=== PATIENT | male | born 1995 | race Caucasian/White ===

== ENCOUNTER 2018-06-30 06:38 | Emergency (ER) | payer OTHER ==
[2018-06-30] MEDS ORDERED: Zofran 4 MG/2 ML VIAL IV ONE (07:26)
[2018-06-30] MEDS ORDERED: Sodium Chloride 0.9% 1000 ML 1,000 ML IV STA ×2 (07:26→08:19)
[2018-06-30] MEDS ORDERED: Sodium Chloride 0.9% 1000 ML 1,000 ML ONE ×2 (07:38→08:22)
[2018-06-30] MEDS ORDERED: Zofran 4 MG/2 ML VIAL ONE (07:38)
[2018-06-30] MEDS ORDERED: MOTRIN 600 MG PO ONE (07:40)
--- NOTE | 2018-06-30 07:40 | ERPHSYRPT ---
- History of Present Illness Time Seen by Provider: 06/30/18 07:00 Patient Subjective Stated Complaint: pt is alert and oriented. pt is ambulatory with a steady gait. pt states he has had body aches, fever, n/v, cough, since 2am 06/28/18. pt estimates he has vomited over 10 times in the last 24 hours. pt denies diarrhea, pt denies coughing up sputum. Triage Nursing Assessment: see above Physician History: PATIENT COMPLAINS OF ONSET OF FEVER GENERALIZED BODY ACHES AND NAUSEA AND VOMITING OVER THE PAST 2 DAYS ASSOCIATED WITH SORE THROAT AND A PRODUCTIVE COUGH. PATIENT STATES HE'S BE 6-7 TIMES DAILY FOR THE PAST 2 DAYS. DENIES CHEST PAIN, ABDOMINAL PAIN, SHORTNESS OF BREATH OR DIARRHEA. Timing/Duration: day(s) Cough Quality/Degree: productive cough Possible Cause: no prior episodes Modifying Factors: Improves With: coughing Associated Symptoms: fever, chills, cough, sore throat International travel in last 2 weeks: No Allergies/Adverse Reactions: naproxen [From Naprosyn] Allergy (Mild, Verified 08/04/13 23:35) acetaminophen [From Lortab] Allergy (Verified 06/30/18 06:52) hydrocodone [From Lortab] Allergy (Verified 06/30/18 06:52) morphine Allergy (Verified 06/30/18 06:52) oxycodone [From OxyContin] Allergy (Verified 06/30/18 06:52) Hx Tetanus, Diphtheria Vaccination/Date Given: Yes (2011) Hx Influenza Vaccination/Date Given: No Hx Pneumococcal Vaccination/Date Given: No - Review of Systems Constitutional: Fever, Chills Eyes: No Symptoms Ears, Nose, & Throat: No Symptoms Respiratory: Cough, No Dyspnea Cardiac: No Symptoms, No Chest Pain, No Edema, No Syncope Abdominal/Gastrointestinal: Nausea, Vomiting, No Abdominal Pain, No Diarrhea Genitourinary Symptoms: No Symptoms, No Dysuria Musculoskeletal: Arthralgias, No Back Pain, No Neck Pain Skin: No Rash Neurological: No Dizziness, No Focal Weakness, No Sensory Changes Psychological: No Symptoms Endocrine: No Symptoms All Other Systems: Reviewed and Negative - Past Medical History Pertinent Past Medical History: No Neurological History: No Pertinent History ENT History: No Pertinent History Cardiac History: No Pertinent History Respiratory History: Asthma Endocrine Medical History: No Pertinent History Musculoskeletal History: Fractures GI Medical History: No Pertinent History History: Other Psycho-Social History: No Pertinent History Male Reproductive Disorders: No Pertinent History Other Medical History: SPINA BIFIDA - Past Surgical History Past Surgical History: Yes Musculoskeletal: Orthopedic Surgery, Other Other Surgical History: L5 Surgery, Right index finger - Social History Smoking Status: Never smoker Exposure to second hand smoke: No Drug Use: none Patient Lives Alone: No - Nursing Vital Signs Nursing Vital Signs: Initial Vital Signs Temperature 100.8 F 06/30/18 06:40 Pulse Rate 78 06/30/18 06:40 Respiratory Rate 18 06/30/18 06:40 Blood Pressure 108/64 06/30/18 06:40 O2 Sat by Pulse Oximetry 100 06/30/18 06:40 Pain Scale Pain Intensity 0 - Physical Exam General Appearance: no apparent distress, alert Eye Exam: PERRL/EOMI, eyes nml inspection Ears, Nose, Throat Exam: normal ENT inspection, TMs normal, pharynx normal, moist mucous membranes Neck Exam: normal inspection, non-tender, supple, full range of motion Respiratory Exam: normal breath sounds, lungs clear, No respiratory distress Cardiovascular Exam: regular rate/rhythm, normal heart sounds Gastrointestinal/Abdomen Exam: soft, normal bowel sounds (NONTENDER), No tenderness Back Exam: normal inspection, No CVA tenderness, No vertebral tenderness Extremity Exam: normal inspection, normal range of motion Neurologic Exam: alert, oriented x 3, cooperative, normal mood/affect, sensation nml, No motor deficits Skin Exam: normal color, warm, dry, No rash Lymphatic Exam: No adenopathy SpO2 Interpretation: normal SpO2: 100 Oxygen Delivery: Room Air - Radiology Exams Chest X-ray Interpretation: Interpreted by me, Negative Ordered Tests: Active Orders 24 hr Category Date Time Status IV Insertion STAT Care 06/30/18 07:26 Active CHEST 1 VIEW (PORTABLE) Stat Exams 06/30/18 07:28 Taken BMP Stat Lab 06/30/18 07:38 Completed CBC W DIFF Stat Lab 06/30/18 07:38 Completed Manual Differential NC Stat Lab 06/30/18 07:38 Completed Medication Summary Discontinued Medications Generic Name Dose Route Start Last Admin Trade Name Freq PRN Reason Stop Dose Admin Sodium Chloride 1,000 mls @ 999 mls/hr 06/30/18 07:26 06/30/18 07:42 Sodium Chloride 0.9% 1000 Ml IV 06/30/18 08:26 999 mls/hr .Q1H1M STA Administration Sodium Chloride Confirm 06/30/18 07:38 Sodium Chloride 0.9% 1000 Ml Administered 06/30/18 07:39 Dose 1,000 mls @ ud .ROUTE .STK-MED ONE Ceftriaxone Sodium/Dextrose 1 g in 50 mls @ 100 mls/hr 06/30/18 08:18 08:25 Rocephin 1 Gm-D5w 50 Ml Bag IV 06/30/18 08:47 100 ml/hr STAT STA 100 mls/hr Administration Sodium Chloride 1,000 mls @ 999 mls/hr 06/30/18 08:19 06/30/18 08:39 Sodium Chloride 0.9% 1000 Ml IV 06/30/18 09:19 999 mls/hr .Q1H1M STA Administration Sodium Chloride Confirm 06/30/18 08:22 Sodium Chloride 0.9% 1000 Ml Administered 06/30/18 08:23 Dose 1,000 mls @ ud .ROUTE .STK-MED ONE Ceftriaxone Sodium/Dextrose Confirm 06/30/18 08:22 Rocephin 1 Gm-D5w 50 Ml Bag Administered 06/30/18 08:23 Dose 1 g in 50 mls @ ud IV .STK-MED ONE Ibuprofen 600 mg 06/30/18 07:40 06/30/18 07:45 Motrin 600 Mg PO 06/30/18 07:41 600 mg STAT ONE Administration Ibuprofen Confirm 06/30/18 07:45 Motrin 600 Mg Administered 06/30/18 07:46 Dose 600 mg .ROUTE .STK-MED ONE Ondansetron HCl 4 mg 06/30/18 07:26 06/30/18 07:42 Zofran 4 Mg/2 Ml Vial IV 06/30/18 07:27 4 mg STAT ONE Administration Ondansetron HCl Confirm 06/30/18 07:38 Zofran 4 Mg/2 Ml Vial Administered 06/30/18 07:39 Dose 4 mg .ROUTE .STK-MED ONE Lab/Rad Data: Laboratory Result Diagrams 06/30/18 07:38 06/30/18 07:38 Laboratory Results 06/30/18 06/30/18 06/30/18 Range/Units 07:38 07:38 07:25 WBC 7.0 (4.0-10.5) K/mm3 RBC 4.84 (4.1-5.6) M/mm3 Hgb 14.8 (12.5-18.0) gm/dl Hct 44.1 (42-50) % MCV 91.1 (78-100) fl MCH 30.6 (26-32) pg MCHC 33.6 (32-36) g/dl RDW 12.2 (11.5-14.0) % Plt Count 188 (150-450) K/mm3 MPV 10.4 H (6-9.5) fl Segmented Neutrophils 88 H (36.-66.) % Lymphocytes (Manual) 12 L (24-44) % Platelet Estimate NORMAL (NORMAL) RBC Morphology NORMAL Sodium 138 (137-145) mmol/L Potassium 4.1 (3.5-5.1) mmol/L Chloride 101 (98-107) mmol/L Carbon Dioxide 28 (22-30) mmol/L Anion Gap 13.3 (5-15) MEQ/L BUN 14 (9-20) mg/dL Creatinine 1.06 (0.66-1.25) mg/dL Estimated GFR > 60.0 ML/MIN Glucose 107 H (74-106) mg/dL Calcium 9.4 (8.4-10.2) mg/dL Influenza Type A Ag POSITIVE (NEGATIVE) Influenza Type B Ag NEGATIVE (NEGATIVE) RSV (PCR) NEGATIVE (Negative) Group A Strep Antibody NEGATIVE (NEGATIVE) - Progress Progress: improved Progress Note: 06/30/18 07:50 NORMAL SALINE 1 LITER/HOUR 2, ZOFRAN 4 MG, ROCEPHIN 1 G IVPB AND MOTRIN 600 MG ORAL Counseled pt/family regarding: lab results, diagnosis, need for follow-up, rad results - Departure Time of Disposition: 10:00 Departure Disposition: Home Clinical Impression: INFLUENZA A, ACUTE BRONCHITIS Condition: Stable Critical Care Time: No Referrals: BELA TIM [Primary Care Provider] - Additional Instructions: ALTERNATE MOTRIN EVERY OTHER 4 HOURS WITH TYLENOL NEEDED FOR FEVER CHILLS OR BODY ACHES. ANTIBIOTIC CEFDINIR 300 MG TWICE DAILY FOR 10 DAYS AND TAMIFLU 75 MG TWICE DAILY FOR 5 DAYS FOR TREATMENT OF INFLUENZA. DRINK PLENTY OF FLUIDS. CONSULT YOUR PRIMARY CARE PROVIDER FOR FOLLOWUP IN 1 WEEK. ZOFRAN 4MG EVERY 4 HOURS FOR NAUSEA. Prescriptions: Ondansetron ODT 4 MG [Zofran Odt 4 mg] 4 mg PO Q6H PRN PRN #10 tab.rapdis PRN Reason: Nausea Cefdinir [Omnicef] 300 mg PO BID #20 capsule Oseltamivir 75 mg [Tamiflu 75MG Capsule] 75 mg PO BID #10 cap
[2018-06-30 07:45] LABS: Hematocrit 44.1 % (42-50); Hemoglobin 14.8 gm/dl (12.5-18.0); Mean Cell Volume 91.1 fl (78-100); Mean Corpuscular Hemoglobin 30.6 pg (26-32); Mean Corpuscular Hgb Concent. 33.6 g/dl (32-36); Mean Platelet Volume 10.4 fl (6-9.5); Platelet Count 188 K/mm3 (150-450); Red Blood Count 4.84 M/mm3 (4.1-5.6); Red Cell Distribution Width 12.2 % (11.5-14.0)
[2018-06-30] MEDS ORDERED: MOTRIN 600 MG ONE (07:45)
[2018-06-30 07:56] LABS: ANION GAP 13.3 MEQ/L (5-15); BLOOD UREA NITROGEN 14 mg/dL (9-20); CHLORIDE 101 mmol/L (98-107); Calcium 9.4 mg/dL (8.4-10.2); Carbon Dioxide 28 mmol/L (22-30); Creatinine 1 1.06 mg/dL (0.66-1.25); Glucose 107 mg/dL (74-106); Potassium 4.1 mmol/L (3.5-5.1); SODIUM 138 mmol/L (137-145)
[2018-06-30 08:14] LABS: INFLUENZA A POSITIVE (NEGATIVE); INFLUENZA B NEGATIVE (NEGATIVE); RESPIRATORY SYNCTIAL VIRUS NEGATIVE (Negative)
[2018-06-30] MEDS ORDERED: ROCEPHIN 1 Gm-D5w 50 ml Bag** 1 G/50 ML IVPB IV STA (08:18)
[2018-06-30] MEDS ORDERED: ROCEPHIN 1 Gm-D5w 50 ml Bag** 1 G/50 ML IVPB IV ONE (08:22)
[2018-06-30 08:45] LABS: Lymphocytes 12 % (24-44); Neutrophils 88 % (36.-66.); Total Cells Counted 100
[2018-06-30 08:46] LABS: Platelet Estimate NORMAL (NORMAL)
[2018-06-30 10:05] VITALS: BP 99/67; PULSE 77; O2SAT 18
--- NOTE | 2018-06-30 15:41 | XRAY ---
Indication: Productive cough 3 days. Comparison: August 09, 2017. Portable chest again demonstrates normal heart, lungs, and bony thorax.
== END 2018-06-30 10:04 | disposition home or self-care (01) ==
LOC: ED 06:38
DX: J09.X2 Influenza due to identified novel influenza A virus with other respiratory manifestations (principal); J20.9 Acute bronchitis, unspecified
CPT/HCPCS: 36000; 36415; 71045; 80048; 85025; 87631; 87651; 96360; 96361; 96365; 96374; 99284; J0696; J2405; A9270-GY

== ENCOUNTER 2023-07-14 15:55 | Emergency (ER) | payer BC, OTHER ==
[2023-07-14 16:07] VITALS: TEMP 97.3
[2023-07-14 16:34] LABS: Absolute Neutrophil Ct (ANC) 3.94 x10^3/uL (1.4-6.9); BASOPHIL % 1.4 % (0.0-0.4); Basophil (Absolute #) 0.08 x10^3/uL (0-0.4); Eosinophil % 1.3 % (0.00-5.0); Eosinophil (Absolute #) 0.07 x10^3/uL (0-0.5); Hematocrit 44.9 % (42-50); Hemoglobin 15.5 g/dL (12.5-18.0); IMMATURE GRAN # 0.03 x10^3u/L (0.00-0.03); IMMATURE GRAN % 0.5 % (0.00-0.4); Lymphocyte (Absolute #) 1.07 x10^3/uL (1.0-4.6); Lymphocytes % 19.2 % (24.0-44.0); Mean Cell Volume 88.7 fL (78-100); Mean Corpuscular Hemoglobin 30.6 pg (26-32); Mean Corpuscular Hgb Concent. 34.5 g/dL (32-36); Mean Platelet Volume 10.1 fL (7.5-11.0); Monocyte (Absolute #) 0.39 x10^3/uL (0.0-1.3); Neutrophil % 70.6 % (36.0-66.0); Platelet Count 265 x10^3/uL (150-450); Red Blood Count 5.06 x10^6/uL (4.1-5.6); Red Cell Distribution Width 11.8 % (11.5-14.0); White Blood Count 5.6 x10^3/uL (4.0-10.5)
--- NOTE | 2023-07-14 16:51 | ERPHSYRPT ---
- History of Present Illness Time Seen by Provider: 07/14/23 16:05 Source: patient, EMS Exam Limitations: no limitations Patient Subjective Stated Complaint: PT HERE FOR NOT FEELING WELL TODAY, STATES WAS FEELING LIKE HEART RACING TODAY AT WORK AND THEN DEVELOPED PAIN UNDER LEFT ARM. STATES A PRESSURE. NO FEVER,COUGH, WAS TESTED LAST WEEK FR=OR COVID AND NEGATIVE, HAD RECENT TRAVEL Triage Nursing Assessment: PT ALERT, ARRIVED PER AMBULANCE, SKIN W.D.P,NO COUGH, NO EDEMA Physician History: This is a 28-year-old white male patient was brought to the emergency department by the ambulance/assistant pressman service because of patient not feeling well and found to have elevated blood pressure and elevated heart rate. Patient takes no medications chronically. He does have a history of asthma. Patient was not feeling well all day and he felt as though he was having palpitation and his heart was racing. He then began having pain under his left axilla and left lateral chest wall. There has been recent travel out of state. Patient stated that he was tested for COVID last week and was negative. Patient also states th at the family members have had flulike symptoms. Patient denies cough. He denies abdominal pain. He denies nausea vomiting and diarrhea symptoms. Timing/Duration: today Severity: mild (To moderate) Modifying Factors: Improves With: nothing Associated Symptoms: chest pain, other (Palpitations) Allergies/Adverse Reactions: naproxen [From Naprosyn] Allergy (Mild, Verified 07/14/23 15:59) acetaminophen [From Lortab] Allergy (Verified 07/14/23 15:59) hydrocodone [From Lortab] Allergy (Verified 07/14/23 15:59) morphine Allergy (Verified 07/14/23 15:59) oxycodone [From OxyContin] Allergy (Verified 07/14/23 15:59) Home Medications: No Reportable Medications [No Reported Medications] 07/14/23 [History] Hx Tetanus, Diphtheria Vaccination/Date Given: No Hx Influenza Vaccination/Date Given: No Hx Pneumococcal Vaccination/Date Given: No Immunizations Up to Date: Yes Travel Risk - International Travel Have you traveled outside of the country in past 3 weeks: No - Coronavirus Screening Are you exhibiting any of the following symptoms?: No Close contact with a COVID-19 positive Pt in past 14-21 Days: No - Vaccine Status Have you recieved a Covid-19 vaccination: No - Review of Systems Constitutional: Weakness Eyes: No Symptoms Ears, Nose, & Throat: No Symptoms Respiratory: No Symptoms Cardiac: Chest Pain, Palpitations Abdominal/Gastrointestinal: No Symptoms Genitourinary Symptoms: No Symptoms Musculoskeletal: No Symptoms Skin: No Symptoms Neurological: No Symptoms Psychological: No Symptoms Endocrine: No Symptoms Hematologic/Lymphatic: No Symptoms Immunological/Allergic: No Symptoms All Other Systems: Reviewed and Negative - Past Medical History Pertinent Past Medical History: No Neurological History: No Pertinent History ENT History: No Pertinent History Cardiac History: No Pertinent History Respiratory History: Asthma Endocrine Medical History: No Pertinent History Musculoskeletal History: Fractures GI Medical History: No Pertinent History History: Other Psycho-Social History: No Pertinent History Male Reproductive Disorders: No Pertinent History Other Medical History: SPINA BIFIDA - Past Surgical History Past Surgical History: Yes Musculoskeletal: Orthopedic Surgery, Other Male Surgical History: Vasectomy Other Surgical History: L5 Surgery, Right index finger - Social History Smoking Status: Never smoker Exposure to second hand smoke: Yes Drug Use: none Patient Lives Alone: No - Nursing Vital Signs Nursing Vital Signs: Initial Vital Signs Pulse Rate 83 07/14/23 16:00 Respiratory Rate 19 07/14/23 16:00 Blood Pressure 151/97 07/14/23 16:00 O2 Sat by Pulse Oximetry 96 07/14/23 16:00 Pain Scale Pain Intensity 5 - Physical Exam General Appearance: no apparent distress, alert, anxiety Eye Exam: PERRL/EOMI, eyes nml inspection Ears, Nose, Throat Exam: normal ENT inspection, moist mucous membranes Neck Exam: normal inspection, non-tender, supple, full range of motion Respiratory Exam: normal breath sounds, lungs clear, airway intact, No chest tenderness, No respiratory distress Cardiovascular Exam: regular rate/rhythm, normal heart sounds, normal peripheral pulses Gastrointestinal/Abdomen Exam: soft, normal bowel sounds, No tenderness Rectal Exam: not done Back Exam: normal inspection, normal range of motion, No CVA tenderness, No vertebral tenderness Extremity Exam: normal inspection, normal range of motion, pelvis stable Neurologic Exam: alert, oriented x 3, cooperative, 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, normal mood/affect, nml cerebellar function, nml station & gait Skin Exam: normal color, warm, dry Lymphatic Exam: No adenopathy SpO2 Interpretation: normal SpO2: 95 O2 Delivery: Room Air - Course Nursing assessment & vital signs reviewed: Yes Ordered Tests: Active Orders 24 hr Category Date Time Status Lease Attendant STAT Care 07/14/23 16:14 Active EKG-ER Only STAT Care 07/14/23 16:13 Active IV Insertion STAT Care 07/14/23 16:13 Active Pulse Oximetry (ED) STAT Care 07/14/23 16:13 Active CBC W DIFF Stat Lab 07/14/23 16:25 Completed CMP Stat Lab 07/14/23 16:25 Completed D-DIMER QUANTITATIVE Stat Lab 07/14/23 16:25 Completed MONO SCREEN Stat Lab 07/14/23 16:25 Completed NT PRO BNPII Stat Lab 07/14/23 16:25 Completed TROPONIN Q4H Lab 07/14/23 16:25 Completed TROPONIN Q4H Lab 07/14/23 20:15 Ordered TROPONIN Q4H Lab 07/15/23 00:15 Ordered Lab/Rad Data: Laboratory Result Diagrams 07/14/23 16:25 07/14/23 16:25 Laboratory Results 07/14/23 07/14/23 07/14/23 Range/Units 16:30 16:25 16:25 WBC (4.0-10.5) x10^3/uL RBC (4.1-5.6) x10^6/uL Hgb (12.5-18.0) g/dL Hct (42-50) % MCV (78-100) fL MCH (26-32) pg MCHC (32-36) g/dL RDW (11.5-14.0) % Plt Count (150-450) x10^3/uL MPV (7.5-11.0) fL Gran % (36.0-66.0) % Immature Gran % (Auto) (0.00-0.4) % Nucleat RBC Rel Count (0.00-0.1) % Eos # (Auto) (0-0.5) x10^3/uL Immature Gran # (Auto) (0.00-0.03) x10^3u/L Absolute Lymphs (auto) (1.0-4.6) x10^3/uL Absolute Monos (auto) (0.0-1.3) x10^3/uL Absolute Nucleated RBC (0.00-0.01) x10^3u/L Lymphocytes % (24.0-44.0) % Monocytes % (0.0-12.0) % Eosinophils % (0.00-5.0) % Basophils % (0.0-0.4) % Absolute Granulocytes (1.4-6.9) x10^3/uL Basophils # (0-0.4) x10^3/uL D-Dimer (0.0-0.50) mg/L Sodium (137-145) mmol/L Potassium (3.5-5.1) mmol/L Chloride (98-107) mmol/L Carbon Dioxide (22-30) mmol/L Anion Gap (5-15) MEQ/L BUN (9-20) mg/dL Creatinine (0.66-1.25) mg/dL Estimated GFR ML/MIN Glucose (74-106) mg/dL Calcium (8.4-10.2) mg/dL Total Bilirubin (0.2-1.3) mg/dL AST (17-59) U/L ALT (0-50) U/L Alkaline Phosphatase (38-126) U/L Troponin I < 0.012 (0.000-0.034) ng/mL NT-Pro-B Natriuret Pep (<300) pg/mL Serum Total Protein (6.3-8.2) g/dL Albumin (3.5-5.0) g/dL Monoscreen NEGATIVE (NEGATIVE) Influenza Type A Ag NEGATIVE (NEGATIVE) Influenza Type B Ag NEGATIVE (NEGATIVE) RSV (PCR) NEGATIVE (NEGATIVE) SARS-CoV-2 (PCR) NEGATIVE (NEGATIVE) 07/14/23 07/14/23 07/14/23 Range/Units 16:25 16:25 16:25 WBC 5.6 (4.0-10.5) x10^3/uL RBC 5.06 (4.1-5.6) x10^6/uL Hgb 15.5 (12.5-18.0) g/dL Hct 44.9 (42-50) % MCV 88.7 (78-100) fL MCH 30.6 (26-32) pg MCHC 34.5 (32-36) g/dL RDW 11.8 (11.5-14.0) % Plt Count 265 (150-450) x10^3/uL MPV 10.1 (7.5-11.0) fL Gran % 70.6 H (36.0-66.0) % Immature Gran % (Auto) 0.5 H (0.00-0.4) % Nucleat RBC Rel Count 0.0 (0.00-0.1) % Eos # (Auto) 0.07 (0-0.5) x10^3/uL Immature Gran # (Auto) 0.03 (0.00-0.03) x10^3u/L Absolute Lymphs (auto) 1.07 (1.0-4.6) x10^3/uL Absolute Monos (auto) 0.39 (0.0-1.3) x10^3/uL Absolute Nucleated RBC 0.00 (0.00-0.01) x10^3u/L Lymphocytes % 19.2 L (24.0-44.0) % Monocytes % 7.0 (0.0-12.0) % Eosinophils % 1.3 (0.00-5.0) % Basophils % 1.4 (0.0-0.4) % Absolute Granulocytes 3.94 (1.4-6.9) x10^3/uL Basophils # 0.08 (0-0.4) x10^3/uL D-Dimer 0.28 (0.0-0.50) mg/L Sodium 139 (137-145) mmol/L Potassium 4.0 (3.5-5.1) mmol/L Chloride 103 (98-107) mmol/L Carbon Dioxide 26 (22-30) mmol/L Anion Gap 13.8 (5-15) MEQ/L BUN 14 (9-20) mg/dL Creatinine 1.01 (0.66-1.25) mg/dL Estimated GFR 102.6 ML/MIN Glucose 103 (74-106) mg/dL Calcium 9.6 (8.4-10.2) mg/dL Total Bilirubin 0.80 (0.2-1.3) mg/dL AST 31 (17-59) U/L ALT 28 (0-50) U/L Alkaline Phosphatase 76 (38-126) U/L Troponin I (0.000-0.034) ng/mL NT-Pro-B Natriuret Pep < 20.0 (<300) pg/mL Serum Total Protein 8.1 (6.3-8.2) g/dL Albumin 4.8 (3.5-5.0) g/dL Monoscreen (NEGATIVE) Influenza Type A Ag (NEGATIVE) Influenza Type B Ag (NEGATIVE) RSV (PCR) (NEGATIVE) SARS-CoV-2 (PCR) (NEGATIVE) - Progress Progress Note: 07/14/23 16:54 This patient's medical issue is 1 of moderate complexity. Level complex in the workup performed is based on review of the patient's past medical history, review of the patient's medication list, review of the patient's drug allergy list, history present illness and physical findings on examination. This patient's medical history includes placement of intravenous line, twelve-lead EKG, D-dimer, BNP, troponin level, CBC, CMP, urinalysis and viral swabs. 07/14/23 17:42 I reviewed and interpreted this patient's laboratory data results. There is no evidence of any acute or emergent medical issue at this time. Counseled pt/family regarding: lab results, diagnosis, need for follow-up, rad results Medical Desision Making - Diagnostic Testing Diagnostic test were ordered, analyzed, and reviewed by me: Yes - Risk of complications Minimal Risk: Minimal risk of morbidity - Departure Departure Disposition: Home Clinical Impression: Malaise and fatigue Condition: Stable Critical Care Time: No Referrals: BELA TIM [Primary Care Provider] - Follow up/PCP as directed Additional Instructions: Drink plenty of fluids. Advance your diet slowly once tolerating clear liquids well.
[2023-07-14 16:56] LABS: ALBUMIN 4.8 g/dL (3.5-5.0); ALKALINE PHOSPHATASE 76 U/L (38-126); ANION GAP 13.8 MEQ/L (5-15); BLOOD UREA NITROGEN 14 mg/dL (9-20); CHLORIDE 103 mmol/L (98-107); Calcium 9.6 mg/dL (8.4-10.2); Carbon Dioxide 26 mmol/L (22-30); Creatinine 1 1.01 mg/dL (0.66-1.25); EST GLOMERULAR FILTRATION RATE 102.6 ML/MIN; Glucose 103 mg/dL (74-106); NT PRO BNPII < 20.0 pg/mL (<300); SGOT/AST 31 U/L (17-59); SGPT/ALT 28 U/L (0-50); SODIUM 139 mmol/L (137-145); Total Protein 8.1 g/dL (6.3-8.2)
[2023-07-14 17:14] LABS: INFLUENZA A NEGATIVE (NEGATIVE); INFLUENZA B NEGATIVE (NEGATIVE); RESPIRATORY SYNCTIAL VIRUS NEGATIVE (NEGATIVE); SARS-CoV-2 Xpert Express NEGATIVE (NEGATIVE)
[2023-07-14 17:58] VITALS: BP 133/87; PULSE 69; RESP 18; O2SAT 98
== END 2023-07-14 17:58 | disposition home or self-care (01) ==
LOC: ED 15:55
DX: R53.83 Other fatigue (principal); R53.81 Other malaise; R00.2 Palpitations; R07.9 Chest pain, unspecified; Z28.310 Unvaccinated for COVID-19
CPT/HCPCS: 0241U; 36000; 36415; 80053; 83880; 84484; 85025; 85379; 86308; 93005; 93041; 94760; 99283

== ENCOUNTER 2024-07-25 08:24 | Emergency (ER) | payer OTHER ==
[2024-07-25 08:31] VITALS: TEMP 97
[2024-07-25 09:00] LABS: Absolute Neutrophil Ct (ANC) 4.03 x10^3/uL (1.78-5.38); BASOPHIL % 1.1 % (0.2-1.2); Basophil (Absolute #) 0.08 x10^3/uL (0.01-0.08); Eosinophil % 1.5 % (0.8-7.0); Eosinophil (Absolute #) 0.11 x10^3/uL (0.04-0.54); Hematocrit 45.1 % (40.1-51.0); Hemoglobin 15.6 g/dL (13.7-17.5); IMMATURE GRAN # 0.02 x10^3u/L (0.001-0.031); IMMATURE GRAN % 0.3 % (0.001-0.429); Lymphocyte (Absolute #) 2.71 x10^3/uL (1.32-3.57); Lymphocytes % 35.8 % (21.8-53.1); Mean Cell Volume 87.9 fL (79.0-92.2); Mean Corpuscular Hemoglobin 30.4 pg (25.7-32.2); Mean Corpuscular Hgb Concent. 34.6 g/dL (32.3-36.5); Mean Platelet Volume 10.5 fL (9.4-12.4); Monocyte (Absolute #) 0.63 x10^3/uL (0.30-0.82); Monocytes % 8.3 % (5.3-12.2); Platelet Count 249 x10^3/uL (163-337); Red Blood Count 5.13 x10^6/uL (4.63-6.08); Red Cell Distribution Width 11.6 % (11.6-14.4); White Blood Count 7.6 x10^3/uL (4.23-9.07)
[2024-07-25] MEDS ORDERED: BABY ASPIRIN 81 MG CHEW ONE (09:01)
[2024-07-25] MEDS: BABY ASPIRIN 81 MG CHEW PO ONE (09:02)
[2024-07-25 09:14] LABS: ALBUMIN 4.8 g/dL (3.5-5.0); ALKALINE PHOSPHATASE 66 U/L (38-126); ANION GAP 9.4 MEQ/L (5-15); BLOOD UREA NITROGEN 15 mg/dL (9-20); CHLORIDE 105 mmol/L (98-107); CK-Creatinine Phosphokinase 88 U/L (55-170); Calcium 9.9 mg/dL (8.4-10.2); Carbon Dioxide 29 mmol/L (22-30); Creatinine 1 1.11 mg/dL (0.66-1.25); EST GLOMERULAR FILTRATION RATE 91.1 ML/MIN; Glucose 112 mg/dL (74-106); NT PRO BNPII < 20.0 pg/mL (<300); Potassium 3.9 mmol/L (3.5-5.1); SGOT/AST 30 U/L (17-59); SGPT/ALT 21 U/L (0-50); SODIUM 140 mmol/L (135-145); Total Protein 7.6 g/dL (6.3-8.2)
--- NOTE | 2024-07-25 09:39 | XRAY ---
Indication: Cough. Comparison: April 08, 2024 Portable chest again demonstrates normal heart, lungs, and bony thorax.
[2024-07-25 10:15] LABS: Amphetamine,Urine NEGATIVE (NEGATIVE); Barbiturate,Urine NEGATIVE (NEGATIVE); Benzodiazepine,Urine NEGATIVE (NEGATIVE); Cocaine,Urine NEGATIVE (NEGATIVE); Methadone,Urine NEGATIVE (NEGATIVE); Opiate,Urine NEGATIVE (NEGATIVE); PCP,Urine NEGATIVE (NEGATIVE); THC,Urine NEGATIVE (NEGATIVE)
[2024-07-25 12:05] VITALS: O2SAT 97
--- NOTE | 2024-07-25 12:58 | ERPHSYRPT ---
- History of Present Illness Time Seen by Provider: 07/25/24 08:28 Historian: patient, family Exam Limitations: no limitations Patient Subjective Stated Complaint: pt here for cough and chest pain to center of chest, chills. Triage Nursing Assessment: pt alert,walked in, resp easy, skion w/d/p, chest clear, has occ coarse cough. pain with cough, no edema noted Physician History: 29-year-old with history of hypertension presented in the ER with complaints of sudden onset chest pain substernal dull aching to sharp, nonradiating, moderate to severe with no significant aggravating or relieving factors. 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 Patient reports having mild cough and it hurts to take a deep breath. No difficulty breathing otherwise. No fever or chills reported. No history of coronary artery disease. Nitro Today/Relief: no nitro taken today Aspirin Treatment Today: no aspirin today Allergies/Adverse Reactions: naproxen [From Naprosyn] Allergy (Mild, Verified 07/25/24 08:29) acetaminophen [From Lortab] Allergy (Verified 07/25/24 08:29) hydrocodone [From Lortab] Allergy (Verified 07/25/24 08:29) morphine Allergy (Verified 07/25/24 08:29) oxycodone [From OxyContin] Allergy (Verified 07/25/24 08:29) Home Medications: Atenolol 50 mg [Tenormin 50 mg] 50 mg PO DAILY 07/25/24 [History] Hx Tetanus, Diphtheria Vaccination/Date Given: No Hx Influenza Vaccination/Date Given: No Hx Pneumococcal Vaccination/Date Given: No Immunizations Up to Date: Yes Travel Risk - International Travel Have you traveled outside of the country in past 3 weeks: No - Emerging Infectious Disease Are you exhibiting symptoms associated with any current EIDs: Yes Symptoms: Cough: New Onset - Review of Systems Constitutional: No Symptoms Ears, Nose, & Throat: No Symptoms Respiratory: Cough Cardiac: Chest Pain Abdominal/Gastrointestinal: No Symptoms Genitourinary Symptoms: No Symptoms Musculoskeletal: No Symptoms Neurological: No Symptoms Endocrine: No Symptoms Hematologic/Lymphatic: No Symptoms - Past Medical History Pertinent Past Medical History: Yes Neurological History: No Pertinent History ENT History: No Pertinent History Cardiac History: Hypertension Respiratory History: Asthma Endocrine Medical History: No Pertinent History Musculoskeletal History: Fractures GI Medical History: No Pertinent History History: Other Psycho-Social History: No Pertinent History Male Reproductive Disorders: No Pertinent History Other Medical History: SPINA BIFIDA - Past Surgical History Past Surgical History: Yes Gastrointestinal: Cholecystectomy Musculoskeletal: Orthopedic Surgery, Other Male Surgical History: Vasectomy Other Surgical History: L5 Surgery, Right index finger - Social History Smoking Status: Never smoker Exposure to second hand smoke: Yes Drug Use: none Patient Lives Alone: No - Social Determinants of Health Will the patient participate in the screening: Declined to provide - Nursing Vital Signs Nursing Vital Signs: Initial Vital Signs Temperature 97.0 F 07/25/24 08:30 Pulse Rate 98 H 07/25/24 08:30 Respiratory Rate 14 07/25/24 08:30 Blood Pressure 175/101 07/25/24 08:30 O2 Sat by Pulse Oximetry 100 07/25/24 08:30 Pain Scale Pain Intensity 4 - Physical Exam General Appearance: no apparent distress Ears, Nose, Throat Exam: normal ENT inspection Neck Exam: normal inspection, supple, full range of motion Respiratory Exam: normal breath sounds, lungs clear Cardiovascular Exam: regular rate/rhythm, normal heart sounds Gastrointestinal/Abdomen Exam: soft, normal bowel sounds, No tenderness Back Exam: normal inspection, normal range of motion Extremity Exam: normal inspection, normal range of motion Neurologic Exam: alert, oriented x 3, cooperative, wildlife conservationist II-XII nml as tested, nml cerebellar function, nml station & gait, sensation nml, No normal mood/affect, No motor deficits Skin Exam: normal color SpO2 Interpretation: normal SpO2: 97 O2 Delivery: Room Air - Course EKG Interpreted by Me: RATE (96), Sinus Rhythm, NORMAL AXIS, NORMAL INTERVALS, Other (Nonspecific T wave changes) Ordered Tests: Active Orders 24 hr Category Date Time Status Director Personal STAT Care 07/25/24 08:53 Active EKG-ER Only STAT Care 07/25/24 08:52 Active IV Insertion STAT Care 07/25/24 08:52 Active Pulse Oximetry (ED) STAT Care 07/25/24 08:52 Active CHEST 1 VIEW (PORTABLE) Stat Exams 07/25/24 09:22 Completed CBC W DIFF Stat Lab 07/25/24 08:30 Completed CK-Creatinine Phosphokinase Stat Lab 07/25/24 08:30 Completed CMP Stat Lab 07/25/24 08:30 Completed D-DIMER QUANTITATIVE Stat Lab 07/25/24 08:30 Completed NT PRO BNPII Stat Lab 07/25/24 08:30 Completed TROPONIN Q4H Lab 07/25/24 08:30 Completed TROPONIN Q4H Lab 07/25/24 11:41 Completed TROPONIN Q4H Lab 07/25/24 17:00 Ordered Urine Triage Profile Stat Lab 07/25/24 09:52 Completed Medication Summary Discontinued Medications Generic Name Dose Route Start Last Admin Trade Name Leti PRN Reason Stop Dose Admin Aspirin 324 mg 07/25/24 08:52 07/25/24 09:02 Aspirin 81 Mg Tab.Chew PO 07/25/24 08:53 324 mg STAT ONE Administration Aspirin Confirm 07/25/24 09:01 Aspirin 81 Mg Tab.Chew Administered 07/25/24 09:02 Dose 324 mg .ROUTE .[employer] ONE Lab/Rad Data: Laboratory Result Diagrams 07/25/24 08:30 07/25/24 08:30 Laboratory Results 07/25/24 07/25/24 07/25/24 Range/Units 11:41 09:52 08:30 WBC (4.23-9.07) x10^3/uL RBC (4.63-6.08) x10^6/uL Hgb (13.7-17.5) g/dL Hct (40.1-51.0) % MCV (79.0-92.2) fL MCH (25.7-32.2) pg MCHC (32.3-36.5) g/dL RDW (11.6-14.4) % Plt Count (163-337) x10^3/uL MPV (9.4-12.4) fL Gran % (34.0-67.9) % Immature Gran % (Auto) (0.001-0.429) % Nucleat RBC Rel Count (0.00-0.2) % Eos # (Auto) (0.04-0.54) x10^3/uL Immature Gran # (Auto) (0.001-0.031) x10^3u/L Absolute Lymphs (auto) (1.32-3.57) x10^3/uL Absolute Monos (auto) (0.30-0.82) x10^3/uL Absolute Nucleated RBC (0.00-0.012) x10^3u/L Lymphocytes % (21.8-53.1) % Monocytes % (5.3-12.2) % Eosinophils % (0.8-7.0) % Basophils % (0.2-1.2) % Absolute Granulocytes (1.78-5.38) x10^3/uL Basophils # (0.01-0.08) x10^3/uL D-Dimer (0.0-0.50) mg/L Sodium (135-145) mmol/L Potassium (3.5-5.1) mmol/L Chloride (98-107) mmol/L Carbon Dioxide (22-30) mmol/L Anion Gap (5-15) MEQ/L BUN (9-20) mg/dL Creatinine (0.66-1.25) mg/dL Estimated GFR ML/MIN Glucose (74-106) mg/dL Calcium (8.4-10.2) mg/dL Total Bilirubin (0.2-1.3) mg/dL AST (17-59) U/L ALT (0-50) U/L Alkaline Phosphatase (38-126) U/L Creatine Kinase (55-170) U/L Troponin I < 0.012 < 0.012 (0.000-0.033) ng/mL NT-Pro-B Natriuret Pep (<300) pg/mL Serum Total Protein (6.3-8.2) g/dL Albumin (3.5-5.0) g/dL Urine Opiates Level NEGATIVE (NEGATIVE) Ur Methadone NEGATIVE (NEGATIVE) Urine Barbiturates NEGATIVE (NEGATIVE) Ur Phencyclidine (PCP) NEGATIVE (NEGATIVE) Urine Amphetamine NEGATIVE (NEGATIVE) U Benzodiazepine Level NEGATIVE (NEGATIVE) Urine Cocaine NEGATIVE (NEGATIVE) Urine Marijuana (THC) NEGATIVE (NEGATIVE) 07/25/24 07/25/24 07/25/24 Range/Units 08:30 08:30 08:30 WBC 7.6 (4.23-9.07) x10^3/uL RBC 5.13 (4.63-6.08) x10^6/uL Hgb 15.6 (13.7-17.5) g/dL Hct 45.1 (40.1-51.0) % MCV 87.9 (79.0-92.2) fL MCH 30.4 (25.7-32.2) pg MCHC 34.6 (32.3-36.5) g/dL RDW 11.6 (11.6-14.4) % Plt Count 249 (163-337) x10^3/uL MPV 10.5 (9.4-12.4) fL Gran % 53.0 (34.0-67.9) % Immature Gran % (Auto) 0.3 (0.001-0.429) % Nucleat RBC Rel Count 0.0 (0.00-0.2) % Eos # (Auto) 0.11 (0.04-0.54) x10^3/uL Immature Gran # (Auto) 0.02 (0.001-0.031) x10^3u/L Absolute Lymphs (auto) 2.71 (1.32-3.57) x10^3/uL Absolute Monos (auto) 0.63 (0.30-0.82) x10^3/uL Absolute Nucleated RBC 0.00 (0.00-0.012) x10^3u/L Lymphocytes % 35.8 (21.8-53.1) % Monocytes % 8.3 (5.3-12.2) % Eosinophils % 1.5 (0.8-7.0) % Basophils % 1.1 (0.2-1.2) % Absolute Granulocytes 4.03 (1.78-5.38) x10^3/uL Basophils # 0.08 (0.01-0.08) x10^3/uL D-Dimer 0.35 (0.0-0.50) mg/L Sodium 140 (135-145) mmol/L Potassium 3.9 (3.5-5.1) mmol/L Chloride 105 (98-107) mmol/L Carbon Dioxide 29 (22-30) mmol/L Anion Gap 9.4 (5-15) MEQ/L BUN 15 (9-20) mg/dL Creatinine 1.11 (0.66-1.25) mg/dL Estimated GFR 91.1 ML/MIN Glucose 112 H (74-106) mg/dL Calcium 9.9 (8.4-10.2) mg/dL Total Bilirubin 0.90 (0.2-1.3) mg/dL AST 30 (17-59) U/L ALT 21 (0-50) U/L Alkaline Phosphatase 66 (38-126) U/L Creatine Kinase 88 (55-170) U/L Troponin I (0.000-0.033) ng/mL NT-Pro-B Natriuret Pep < 20.0 (<300) pg/mL Serum Total Protein 7.6 (6.3-8.2) g/dL Albumin 4.8 (3.5-5.0) g/dL Urine Opiates Level (NEGATIVE) Ur Methadone (NEGATIVE) Urine Barbiturates (NEGATIVE) Ur Phencyclidine (PCP) (NEGATIVE) Urine Amphetamine (NEGATIVE) U Benzodiazepine Level (NEGATIVE) Urine Cocaine (NEGATIVE) Urine Marijuana (THC) (NEGATIVE) - Progress Progress: re-examined Air Movement: good Progress Note: 07/25/24 12:58 29-year-old is evaluated in the ER for sudden onset substernal chest pain with little cough and difficulty taking deep breath. EKG is sinus rhythm with no acute ST elevations Offered pain medication but declined, given aspirin. On reevaluation feeling better. Has normal white count, unremarkable chemistries including troponins x 2 and negative D-dimers. Chest x-ray is negative and negative urine tox screen. Patient has low heart score, do not think needs further evaluation in the ER and can be discharged with outpatient follow-up. Patient told me that his primary care has arranged for stress test which she is advised to keep that appointment. Discussed signs symptoms of worsening needing return to ER which he seems understanding. Stable for discharge. Blood Culture(s) Obtained: No Antibiotics given: No Counseled pt/family regarding: lab results, diagnosis, need for follow-up, rad results Medical Desision Making - Independent Historian Additional History obtained from: Spouse - Diagnostic Testing Diagnostic test were ordered, analyzed, and reviewed by me: Yes Radiological Interpretation: Reviewed by me - Departure Departure Disposition: Home Clinical Impression: Chest pain, atypical Condition: Stable Critical Care Time: No Referrals: BELA TIM [Primary Care Provider] - Follow up with PCP 1 day Instructions: Angina (DC), Chest Pain (DC) Additional Instructions: Follow-up with primary care for reevaluation and stress test as scheduled. Return to ER for worsening of chest pain or if having palpitations/difficulty breathing etc.
[2024-07-25 13:04] VITALS: BP 120/77; PULSE 64; RESP 13
== END 2024-07-25 13:21 | disposition home or self-care (01) ==
LOC: ED 08:24
DX: R07.89 Other chest pain (principal); I10 Essential (primary) hypertension; Z79.899 Other long term (current) drug therapy
CPT/HCPCS: 36415; 71045; 80053; 80307; 82550; 83880; 84484; 85025; 85379; 93005; 93041; 94760; 99284; 99285; A9270-GY